=== PATIENT | male | born 1965 | race Caucasian/White ===

== ENCOUNTER 2020-05-05 01:05 | Emergency (ER) | payer OTHER ==
[~2020-05-05] VITALS: Ht 177.8 cm; Wt 68.0 kg
--- NOTE | 2020-05-05 01:20 | NUR ---
PT CAME IN FOR R SHOULDER PAIN AFTER LIFTING BOXES. ROM ACTIVE. PT AAOX4, VSS, RESPIRATIONS EVEN AND UNLABORED ON RA W/ NAD NOTED. PT CONNECTED TO THE MONITOR AND POX.
--- NOTE | 2020-05-05 02:00 | NUR ---
CALLED RADIOLOGY FOR XRAY
--- NOTE | 2020-05-05 03:01 | NUR ---
Patient discharged to home in stable condition. Written and verbal after care instructions given. Patient verbalizes understanding of instruction.pt. ambulatory with a steady gait
[2020-05-05 03:02] VITALS: BP 124/78
== END 2020-05-05 03:02 | disposition home or self-care (01) ==
LOC: ER 01:08
DX: S42.031A Displaced fracture of lateral end of right clavicle, initial encounter for closed fracture (principal); X58.XXXA Exposure to other specified factors, initial encounter; Y93.89 Activity, other specified; Y92.89 Other specified places as the place of occurrence of the external cause; Y99.8 Other external cause status
CPT/HCPCS: 73030-TC